=== PATIENT | male | born 1960 | race Caucasian/White ===

== ENCOUNTER 2018-09-02 11:20 | Outpatient (CLI) | payer BC ==
--- NOTE | 2018-09-02 11:58 | RAD ---
XR Ribs Lt>=2 View W/PA CXR History: [Pain] Comparison: None. Findings: The lungs are clear. No pneumothorax. No effusion. No displaced left-sided rib fracture. Mild degenerative disease left glenohumeral joint. Left lower quadrant space height loss lower thoracic spine. Impression: No displaced left-sided rib fracture.
== END 2018-09-02 11:21 | disposition home or self-care (01) ==
LOC: SCSRAD 11:20
PROVIDERS: ATTEND Family Medicine
DX: R07.81 Pleurodynia (principal)

== ENCOUNTER 2018-12-18 11:56 | Day surgery (SDC) | payer BC ==
[2018-12-17 16:16] VITALS: BMI 46.0
[2018-12-18] MEDS ORDERED: Cyclopentolate 1% Opth Drop 2 ML BOT ONE (12:50)
[2018-12-18] MEDS ORDERED: Phenylephrine 2.5% Ophth Soln 5 ML BOT ONE (12:50)
[2018-12-18] MEDS ORDERED: Fluorouracil 100 MG, Enoxaparin Sodium 25 MG, EPINEPHrine 0.3 MG in Ophthalmic Irrigati... IRR SCH (12:56)
[2018-12-18] MEDS ORDERED: Fentanyl 100 MCG/2 ML VIAL ONE ×2 (14:24→16:57)
[2018-12-18] MEDS ORDERED: Acetaminophen/Codeine 30-300mg Tablet ONE (17:53)
--- NOTE | 2018-12-19 01:54 | OP ---
DATE OF PROCEDURE: 12/18/2018 PREOPERATIVE DIAGNOSIS: Rhegmatogenous retinal detachment, left eye. POSTOPERATIVE DIAGNOSIS: Rhegmatogenous retinal detachment, left eye. PROCEDURE PERFORMED: Pars plana vitrectomy, complex retinal detachment repair; left eye. ANESTHESIA: General endotracheal anesthesia. DESCRIPTION OF PROCEDURE: The patient was identified in the preoperative holding area. Appropriate informed consent for the planned surgical procedure on the left eye had been obtained. The patient was transported to the operative suite. Appropriate cardiopulmonary monitoring was established. General endotracheal anesthesia was initiated. The patient was prepped and draped in the usual sterile manner for ophthalmic surgery on the left eye. Lid speculum was placed on the left eye. A #42 band was encircled around the eye and fixated in the oblique meridians with 5-0 [place]il[place] suture and ligated end-to-end supratemporally using a 3083 sleeve. Trocars were placed supratemporally, inferotemporally, supranasally. Infusion line was placed inferotemporally. Light pipe and vitreous cutters were inserted into the eye. Core vitrectomy was performed. Attention was turned to the inferotemporal retinal detachment. Posterior drain was created and the retina was flattened under air. Several other peripheral tears were noted; notably 2 superiorly and 1 directly at 6 o'clock with no subretinal fluid. A 360 barricade laser was placed using Endolaser delivery device. Complete air-fluid exchange was performed with 10 minutes being left for fluid to drain posteriorly. 15% perfluoropropane gas was infused into the eye. Trocars were removed and sclerotomy suture closed. Retrobulbar Kenalog and sequential Ancef were placed. Atropine antibiotic ointment was placed. The eye was patched and shielded. The patient was taken to postoperative recovery unit in good condition having suffered no immediate perioperative complications. The patient was instructed to keep patch and shield on. Avoid lifting or bending. Followup appointment with Dr. Walker. Job ID: [id number]
== END 2018-12-18 18:15 | disposition home or self-care (01) ==
LOC: SDC 11:56
PROVIDERS: ATTEND Ophthalmology Retina Specialist
PROC: 08T53ZZ Resection of Left Vitreous, Percutaneous Approach (ICD-10-PCS; principal; 2018-12-18)
DX: H33.002 Unspecified retinal detachment with retinal break, left eye (principal); Z91.018 Allergy to other foods
CPT/HCPCS: 67025; J0171; J1650; J3010; J9190

== ENCOUNTER 2020-11-16 05:57 | Day surgery (SDC) | payer BC ==
[2020-11-15 13:45] VITALS: BMI 50.1
[2020-11-16] MEDS ORDERED: Lidocaine 1% PF 5 ML VIAL ONE (08:06)
[2020-11-16] MEDS ORDERED: PROPOFOL 200 MG/20 ML VIAL ONE (08:06)
== END 2020-11-16 09:37 | disposition home or self-care (01) ==
LOC: SDC 05:57
PROVIDERS: ATTEND Internal Medicine
PROC: 0DBL8ZZ Excision of Transverse Colon, Via Natural or Artificial Opening Endoscopic (ICD-10-PCS; principal; 2020-11-16)
PROC: 0DBM8ZX Excision of Descending Colon, Via Natural or Artificial Opening Endoscopic, Diagnostic (ICD-10-PCS; principal; 2020-11-16)
DX: Z12.11 Encounter for screening for malignant neoplasm of colon (principal); D12.3 Benign neoplasm of transverse colon; D12.4 Benign neoplasm of descending colon; K64.4 Residual hemorrhoidal skin tags; K64.8 Other hemorrhoids; K57.32 Diverticulitis of large intestine without perforation or abscess without bleeding; E78.5 Hyperlipidemia, unspecified; E66.9 Obesity, unspecified; Z68.43 Body mass index [BMI] 50.0-59.9, adult; Z79.899 Other long term (current) drug therapy
CPT/HCPCS: 88305; J2704

== ENCOUNTER 2022-11-28 09:47 | Outpatient (CLI) | payer BC | END 2022-11-28 09:48 | disposition home or self-care (01) | LOC: SCSMRI 09:47 | PROVIDERS: ATTEND Orthopaedic Surgery | DX: M23.307 Other meniscus derangements, unspecified meniscus, left knee (principal); M25.462 Effusion, left knee; M23.92 Unspecified internal derangement of left knee; M67.864 Other specified disorders of tendon, left knee ==

== ENCOUNTER 2024-06-16 12:52 | Outpatient (CLI) | payer BC | END 2024-06-16 12:53 | disposition home or self-care (01) | LOC: MRI 12:52 | PROVIDERS: ATTEND Orthopaedic Surgery | DX: M51.16 Intervertebral disc disorders with radiculopathy, lumbar region (principal); M48.061 Spinal stenosis, lumbar region without neurogenic claudication; M48.07 Spinal stenosis, lumbosacral region | CPT/HCPCS: 72148 ==

== ENCOUNTER 2025-03-25 07:20 | Day surgery (SDC) | payer BC ==
[2025-03-24 10:32] VITALS: BMI 34.2
[~2025-03-25 07:20] MED LIST: EPINEPHrine 0.3 MG in Ophthalmic Irrigation Solution 500 ML IRR SCH; Fluorouracil 100 MG, Enoxaparin 25 MG, EPINEPHrine 0.3 MG in Ophthalmic Irrigation Solu... IRR SCH
[2025-03-25] MEDS ORDERED: Cyclopentolate 1% Opth Drop 2 ML BOT ONE (08:07)
[2025-03-25] MEDS ORDERED: Lidocaine 1% PF 5 ML VIAL ONE ×2 (08:54→09:56)
[2025-03-25] MEDS ORDERED: PROPOFOL 200 MG/20 ML VIAL ONE (09:56)
[2025-03-25] MEDS ORDERED: Lidocaine 4% PF 5 ML AMP ONE (09:56)
[2025-03-25] MEDS ORDERED: Enoxaparin 30 MG (0.3 mL) SYRINGE ONE (09:56)
[2025-03-25] MEDS ORDERED: CEFAZOLIN 1 GM VIAL ONE (09:56)
[2025-03-25] MEDS ORDERED: Glycopyrrolate 0.2 MG/ML 5 ML SYRINGE ONE (09:56)
[2025-03-25] MEDS ORDERED: TISSUEBLUE 0.5 ML SYRINGE IO ONE (09:56)
[2025-03-25] MEDS ORDERED: Maxitrol 0.1% Opth Oint 3.5 GM TUBE ONE (09:56)
== END 2025-03-25 11:24 | disposition home or self-care (01) ==
LOC: SDC 07:20
PROVIDERS: ATTEND Ophthalmology Retina Specialist
DX: H35.342 Macular cyst, hole, or pseudohole, left eye (principal); Z91.013 Allergy to seafood; Z91.048 Other nonmedicinal substance allergy status
CPT/HCPCS: 67025; J0166; J0690; J1650; J2003; J2250; J2704; J3010; J3490; J9190